=== PATIENT | male | born 1995 | race Caucasian/White ===

== ENCOUNTER 2018-05-15 22:29 | Emergency (ER) | payer BC ==
[2018-05-15] MEDS ORDERED: Lidocaine 1% PF 5 ML VIAL ONE (23:25)
[2018-05-15] MEDS ORDERED: Lidocaine 1% 20 ML MDV ONE (23:26)
[2018-05-15] MEDS ORDERED: CEFAZOLIN 1 GM VIAL ONE (23:58)
[2018-05-15] MEDS ORDERED: Ciprofloxacin Lactate/D5W 400 mg/200 ml Premix ONE ×2 (23:58→23:59)
[2018-05-16] MEDS ORDERED: Sodium Chloride 0.9% 100 ML ONE (00:01)
[2018-05-16] MEDS ORDERED: Bacitracin Zinc Ointment 30 gm TUBE ONE (00:04)
[2018-05-16] MEDS ORDERED: Bacitracin Zinc 1 Packet ONE (00:05)
[2018-05-16] MEDS ORDERED: Adacel (T-DAP) 0.5 ML SYRINGE ONE (00:32)
[2018-05-16] MEDS ORDERED: diphenhydrAMINE 50 MG/ML VIAL ONE (00:58)
--- NOTE | 2018-05-16 08:13 | RAD ---
LEFT FINGER 3 VIEWS: Date: 05/15/18 HISTORY: Foreign body. COMPARISON: None. FINDINGS: There is a triple fish hook within the lateral soft tissues of the middle finger distal interphalange al joint. No intraosseous extension. IMPRESSION: Radiopaque foreign object as described. No fracture. POS: [facility]
== END 2018-05-16 03:40 | disposition home or self-care (01) ==
LOC: SCSER 22:29
DX: S61.223A Laceration with foreign body of left middle finger without damage to nail, initial encounter (principal); F17.210 Nicotine dependence, cigarettes, uncomplicated; Z79.899 Other long term (current) drug therapy; W45.8XXA Other foreign body or object entering through skin, initial encounter
CPT/HCPCS: 10120; 90471; 90715; 96365; 96367; 96375; J0690; J0744; J1200; J2001; J7050